=== PATIENT | male | born 1945 | race Caucasian/White ===

== ENCOUNTER → 2024-03-14 | Outpatient (CLI) | payer MEDICARE, SELFPAY ==
[2024-03-14 08:51] LABS: Glucose Estimated Average 189 mg/dL (80-131); Hemoglobin A1C 8.2 % Hgb (4.8-6.0)
[2024-03-14 09:13] LABS: Alanine Aminotransferase 16 U/L (10-49); Albumin, Serum 4.3 gm/dL (3.4-4.8); Alkaline Phosphatase 130 U/L (46-116); Anion Gap 9 (7-16); Aspartate Amino Transferase 13 U/L (0-34); BUN/Creatinine Ratio 12 Ratio (12-20); Bilirubin,Total 0.9 mg/dL (0.3-1.2); Blood Urea Nitrogen 12 mg/dL (9-23); Calcium 9.4 mg/dL (8.3-10.6); Calcium (Corrected) 9.4 mg/dL (8.5-10.1); Carbon Dioxide 28.6 mMol/L (20.0-31.0); Chloride 102 mMol/L (98-107); Cholesterol 104 mg/dL (132-200); Globulin 2.1 gm/dL (2.3-3.5); Glucose 232 mg/dL (74-106); HDL Cholesterol 35 mg/dL (40-60); LDL Cholesterol,Calculated 42 mg/dL (0-130); Osmolality,Calculated 286 (275-295); Potassium 4.9 mMol/L (3.4-5.1); Sodium 140 mMol/L (136-145); Total Protein 6.4 gm/dL (5.7-8.2); Triglycerides 133 mg/dL (30-150); eGFR > 60 See Note
== END | disposition home or self-care (01) ==
LOC: COPL 07:33
PROVIDERS: PCP Family Medicine; Referring Provider Family Medicine; Visit Provider Family Medicine
DX: E11.59 Type 2 diabetes mellitus with other circulatory complications (principal); C61 Malignant neoplasm of prostate
CPT/HCPCS: 36415; 80053; 80061; 82043; 82570; 83036

== ENCOUNTER → 2024-03-15 | Outpatient (CLI) | payer MEDICARE, SELFPAY ==
[2024-03-15 10:58] LABS: Creatinine MALB Rnd Ur 116 mg/dL (30-125); Microalbumin Creat Ratio 20 mg/gCrea (<30); Microalbumin, Random Urine 23 mg/L (0-300)
== END | disposition home or self-care (01) ==
LOC: SLDO 09:59
PROVIDERS: Referring Provider Family Medicine; Visit Provider Family Medicine
DX: E11.59 Type 2 diabetes mellitus with other circulatory complications (principal)
CPT/HCPCS: 82043; 82570

== ENCOUNTER 2024-04-21 02:40 | Inpatient (IN) | payer MEDICARE, SELFPAY ==
[2024-04-21] VITALS (17 sets, daily range): BP systolic 107–158; BP diastolic 62–88; PULSE 77–143; RESP 15–25; TEMP 36.7–38.6; O2SAT 88–100; BMI 32.1; BMI 33.0
--- NOTE | 2024-04-21 03:26 | XR_ITS ---
Examination: AP chest single view Technique one AP portable upright chest single view Exam date and time: April 21, 2024 0344 hours INDICATIONS: Shortness of breath today. FINDINGS: Mild enlargement cardiac contour Mild elevation right hemidiaphragm No pneumonia or pulmonary edema Moderate osteopenia IMPRESSION: No pneumonia or pulmonary edema
--- NOTE | 2024-04-21 03:40 | EKG_ITS ---
[facility] Test Date: 2024-04-21 Pat Name: BRIANA ECE Department: Room: - Gender: Male Fisher Scallop: : 1945 Requested By: ED Temporary Provider Order Number: [id number] Reading MD: ED Temporary Provider Measurements Intervals [place] Rate: 129 P: FL: QRS: 136 QRSD: 133 T: -13 QT: 323 QTc: 475 Interpretive Statements ATRIAL FIBRILLATION WITH RAPID VENTRICULAR RESPONSE INDETERMINATE AXIS RIGHT BUNDLE BRANCH BLOCK [120+ ms QRS DURATION, UPRIGHT V1, 40+ ms S IN I/aVL/V4/V5/V6] POSSIBLE ANTERIOR MYOCARDIAL INFARCTION , OF INDETERMINATE AGE [30 ms Q WAVE IN V3/V4, OR R < 0.2 mV IN V4] Compared to ECG 10/02/2020 13:18:09 Indeterminate axis now present Myocardial infarct finding now present Sinus rhythm no longer present /store/S0/[id number]/ecg/[id number].pdf
[2024-04-21] MEDS: ACETAMINOPHEN 325 MG TABLET 650 MG PO (06:12)
--- NOTE | 2024-04-21 06:30 | EDNOTE_ITS ---
ED SOB =RME/HPI General Chief Complaint: Shortness of Breath/Dyspnea Stated Complaint: SOB Time Seen by Provider: 04/21/24 06:19 Arrival date/time: 04/21/24 02:40 RME / HPI RME / HPI Narrative: DR. ZAMORA MAIN ED EVALUATION: 78-year-old male patient recently admitted and discharged from [facility] with complaints of chest pain and chronic CHF presents to the Emergency Department BIBA with complaints today of a dry cough, shortness of breath, and fever. Symptoms are moderate. Related Data Home Medications ?Medication ?Instructions ?Recorded ?Confirmed metoprolol succinate 50 mg 100 mg PO HS ##0 08/23/15 01/18/23 tablet,extended release 24 hr (Toprol XL) pregabalin 300 mg capsule (Lyrica) 600 mg PO QPM 07/05/17 01/18/23 pioglitazone 30 mg tablet 30 mg PO HS 10/02/20 01/18/23 apixaban 2.5 mg tablet (Eliquis) 2.5 mg PO BID 01/18/23 01/18/23 hydrochlorothiazide 50 mg tablet 50 mg PO QDAY 01/18/23 01/18/23 lisinopril 40 mg tablet 40 mg PO HS 01/18/23 01/18/23 Allergies Allergy/AdvReac Type Severity Reaction Status Date / Time iodine Allergy Severe Difficulty Verified 01/18/23 13:38 Breathing Sulfa (Sulfonamide Allergy Unknown Hives Verified 01/18/23 13:38 Antibiotics) Review of Systems Review of Systems Systems Reviewed: All systems reviewed, normal except as documented Narrative Review of Systems: GEN: + fever, no chills, no weight loss EYES: No discharge, no visual changes, no pain HEENT: No ear pain, no congestion, no sore throat PULM: + shortness of breath, + dry cough, no congestion CV: No chest pain, no dyspnea on exertion, no palpitations GI: No nausea, no vomiting, no diarrhea, no pain, no constipation : No frequency, no urgency and no dysuria MUSC/SKEL: No joint pain, no back pain SKIN: No rash PSYCH: No hallucinations, no depression HEME/LYMPH: No easy bleeding or bruising tendencies NEURO: No weakness, no headache Past Medical History Past Medical History NEUROLOGIC: Positive Neurological Disorders, Transient Ischemic Attacks (TIA) and Migraine; Negative Seizures CARDIAC: Positive Cardiac Disorders, Hypercholesterolemia and Hypertension; Negative Congestive Heart Failure RESPIRATORY: Negative Chronic Obstructive Pulmonary Disease (COPD) GASTROINTESTINAL: Negative Gastrointestinal Disorders GENITOURINARY: Positive Genitourinary Disorders, Kidney Stones and Prostate Cancer; Negative Renal Disease MUSCULOSKELETAL: Positive Musculoskeletal Disorders ENT: Positive Cataracts ENDOCRINE: Positive Endocrine Disorders and Diabetes Mellitus Type 2; Negative Diabetes Mellitus Type 1 HEMATOLOGIC: Negative Blood Disorders PSYCHO/SOCIAL: Positive Depression OTHER HISTORY: Positive Hospitalization, Radiation Therapy, Chicken Pox, Measles, Cancer and Prostate Cancer; Negative Shingles, Falls, Blood Transfusions, Blood Transfusion Reaction or Anesthesia Reactions Family History FAMILY HISTORY: Positive Family Psychiatric Problems, Family Cardiac Disorders, Family Cancer and Family Surgery; Negative Family Anesthesia Reaction Social History SMOKING STATUS: Former smoker ED Exam Narrative Physical exam: GENERAL APPEARANCE: alert and oriented x 4, well-developed, well-nourished, no acute distress, febrile at arrival VITALS: All vitals were reviewed and the pulse ox is 96% on 3 L/min via a nasal cannula. HEENT: Normocephalic, atraumatic; pupils equal, round, reactive to light; EOMI; mucous membranes pink, moist; oropharynx clear NECK: Supple LUNGS: CTABL; no wheezes, no rales, no rhonchi HEART: Regular rate, regular rhythm; normal S1, S2; no murmurs ABDOMEN: non distended; normal BS; soft, no tenderness, no guarding, no rebound; no masses, no organomegaly, no hernia BACK: no CVA tenderness EXTREMITIES: atraumatic; no edema NEUROLOGIC: awake; alert and oriented x4; cranial nerves II-XII grossly intact; no focal sensory or motor deficits PSYCHIATRIC: appropriate mood and affect SKIN: warm, dry, normal color; no rashes Course Quality Measures none Orders Category Date Time Status Bedside COVID-19 Antigen Test NOW Care 04/21/24 03:45 Active Bedside Influenza A&B Antigen Test NOW Care 04/21/24 07:[address] Screening NOW Care 04/21/24 10:26 Active 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 NOW Care 04/21/24 06:16 Active EKG (ED ONLY) *Do not use* NOW Care 04/21/24 03:[address] angio chest Stat Exams 04/21/24 10:26 Completed EKG (ED Only) Stat Exams 04/21/24 03:40 Draft XR chest 1V portable Stat Exams 04/21/24 03:26 Completed B-Type Natriuretic Peptide Stat Lab 04/21/24 06:35 Completed Blood Culture (Lab) Stat Lab 04/21/24 06:35 Received CBC Stat Lab 04/21/24 06:35 Completed Comprehensive Metabolic Panel Stat Lab 04/21/24 06:35 Completed Lactate (Lactic Acid) Stat Lab 04/21/24 06:35 Completed Lipase Stat Lab 04/21/24 06:35 Completed Magnesium Stat Lab 04/21/24 06:35 Completed Partial Thromboplastin Time Stat Lab 04/21/24 06:35 Completed Procalcitonin Stat Lab 04/21/24 06:35 Completed Prothrombin Time with INR Stat Lab 04/21/24 06:35 Completed Troponin I Stat Lab 04/21/24 06:35 Completed Urinalysis Stat Lab 04/21/24 06:45 Completed Urine Culture Stat Lab 04/21/24 06:49 Received Acetaminophen Tab [Tylenol Tab] Med 04/21/24 06:07 Discontinued 650 mg PO X1 ONE Azithromycin Inj [Zithromax Inj] 500 mg Med 04/21/24 07:30 Discontinued Sodium Chloride 0.9% 250 ml [Ns] 250 ml IV X1 DiphenhydrAMINE INJ [Benadryl Inj] Med 04/21/24 10:26 Discontinued 25 mg IVP X1 ONE Famotidine Inj [Pepcid Inj] Med 04/21/24 10:26 Discontinued 20 mg IVP X1 ONE MethylPREDNISolone.* [SoluMEDROL Inj] Med 04/21/24 10:26 Discontinued 125 mg IVP X1 ONE cefTRIAXone [Rocephin] 1,000 mg Med 04/21/24 07:30 Discontinued Sodium Chloride 0.9% (P) [Ns 0.9% (P)] 50 ml IV X1 Vital Signs Vital signs: Vital Signs Temperature 101.3 F H 04/21/24 02:47 Pulse Rate 116 H 04/21/24 02:47 Respiratory Rate 18 04/21/24 02:47 Blood Pressure 149/74 H 04/21/24 02:47 Pulse Oximetry (%) 95 04/21/24 02:47 Oxygen Delivery Method Nasal Cannula 04/21/24 02:47 Oxygen Flow Rate 6 04/21/24 02:47 Shortness of Breath / Dyspnea MDM Narrative MDM Narrative:: IKenna am scribing for and in the presence of Dr. Zamora. Patient data External records reviewed:: [facility] previous records (Reviewed last ED visit dated 01/18/23, discharged with the following: Acute upper respiratory infection.) and EMS form Clinical information provided by:: patient and EMS Social determinants that could affect healthcare access:: none Patient has the following chronic illnesses:: Prostate CA s/p radiation and hypertension. Recently admitted and discharged from [facility] with complaints of chest pain and chronic CHF. How is presenting disease/condition affected by chronic disease/condition?: exacerbated by Evaluation data The following diagnostics were reviewed and interpreted by me:: lab results, radiology exam(s) and EKG tracing(s) (atrial fibrillation with RVR, rate 129, right bundle branch block,) Lab and/or radiology exams considered but not ordered:: none Interpretation Summary: Procedure(s): XR chest 1V portable Accession Number(s): [id number] cc: Hardeep Sanchez MD; Chandrakant Hope MD; Mari Zamora MD~ Examination: AP chest single view Technique one AP portable upright chest single view Exam date and time: April 21, 2024 0344 hours INDICATIONS: Shortness of breath today. FINDINGS: Mild enlargement cardiac contour Mild elevation right hemidiaphragm No pneumonia or pulmonary edema Moderate osteopenia IMPRESSION: No pneumonia or pulmonary edema Dictated By: Chandrakant Hope MD Procedure(s): CT angio chest Accession Number(s): [id number] cc: Hardeep Sanchez MD; Chandrakant Hope MD; Mari Zamora MD~ Examination: CTA chest with intravenous contrast 2-D reconstructions 3-D reconstructions, vascular Date and time of exam: April 21, 2024 1247 hours INDICATIONS: Shortness of breath coughing beginning 6 days ago CTDI: vol (mGy) 20.6 DLP: (mGycm) 466 Technique: Multiple axial sections of the thorax have been obtained. 3 mm slice thickness, from below the hemidiaphragms to above the apices of the lungs. Mediastinal and lung density settings have been obtained. 2-D sagittal and coronal reconstructions. 3-D angiographic renderings, 3-D volume renderings, 3D post processing, vascular maximum intensity projections obtained. Contrast administered is 100 cc Isovue-370. Low dose protocols were performed. One or more of the following dose reduction techniques were used; automated exposure control, adjustment of the mA and/or KV according to patient size, use of iterative reconstruction technique. Findings: No thoracic aortic aneurysmal dilatation Main pulmonary artery segment 40 mm Pulmonary artery opacification in the distal segmental branches is not optimal No pulmonary artery emboli depicted Mild enlargement cardiac contour Prominent vascular congestion Mild opacity at the left lung base Minimal bilateral pleural disease No visualized liver lesion No gallstones No pancreatic or adrenal mass Moderate osteopenia IMPRESSION: Pulmonary artery hypertension Negative for pulmonary artery emboli Early pneumonia left base Dictated By: Chandrakant Hope MD Medications / Prescriptions Medications or Prescriptions considered but not ordered:: none Medication administrations:: Medication Administration History Acetaminophen (Acetaminophen 325 Mg Tablet) 650 mg PO Q6H PRN PRN Reason: pain and Fever >100.4 Stop: 05/21/24 14:56 Hydrocodone Bitart/Acetaminophen (Hydrocodone/Apap 5/325 Tablet) 1 tab PO Q4HR PRN PRN Reason: PAIN SCALE 4-10(Mod-Sev Stop: 04/26/24 14:56 Last Admin: 04/21/24 15:27 Dose: 1 tab Documented By: NOEMI Apixaban (Apixaban 2.5 Mg Tablet) 2.5 mg PO BID VIKI; Protocol Stop: 05/21/24 20:59 Dextrose (Dextrose 50%-Water Inj 50 Ml Syringe) 25 ml IV Q15MIN PRN PRN Reason: BG 50-70 responsive npo pt Stop: 05/21/24 14:56 Dextrose (Dextrose 50%-Water Inj 50 Ml Syringe) 50 ml IV Q15MIN PRN PRN Reason: BG <50 OR BG <70 & pt unresponsive Stop: 05/21/24 14:56 Doxycycline Hyclate (Doxycycline 100 Mg Tablet) 100 mg PO BID [facility] Stop: 04/28/24 20:59 Glucagon (Glucagon Inj 1 Mg Vial) 1 mg IM Q15MIN PRN PRN Reason: BG <70, and no IV access Ceftriaxone Sodium/Dextrose (Rocephin/D5w 1gm Iv Premix) 50 mls @ 100 mls/hr IV QDAY [facility] Stop: 04/28/24 08:59 Insulin Glargine (Insulin Glargine (Lantus) 5 Unit/0.05 Ml (Per 5 Units)) 10 unit SC HS [facility] Stop: 05/21/24 20:59 Insulin Human Lispro (Insulin Lispro (Admelog) 1 Unit/0.01 Ml Unit) 0 unit SC [facility]; Protocol Stop: 05/21/24 16:59 Metoprolol Succinate (Metoprolol Succinate Xl 25 Mg Tabcr) 50 mg PO QDAY [facility] Stop: 05/22/24 08:59 Ondansetron HCl (Ondansetron Inj 2 Mg/Ml Inj 2 Ml) 4 mg IV Q6H PRN; Protocol PRN Reason: NAUSEA OR VOMITING Stop: 05/21/24 14:56 Sennosides (Senna Tablet) 1 tab PO QDAY PRN; Protocol PRN Reason: constipation Stop: 05/21/24 14:56 Discontinued Medications Acetaminophen (Acetaminophen 325 Mg Tablet) 650 mg PO X1 ONE Stop: 04/21/24 06:08 Last Admin: 04/21/24 06:12 Dose: 650 mg Documented By: KD Diphenhydramine HCl (Diphenhydramine Inj 50 Mg/Ml Vial) 25 mg IVP X1 ONE Stop: 04/21/24 10:27 Last Admin: 04/21/24 12:10 Dose: 25 mg Documented By: DO Famotidine (Famotidine Inj 10 Mg/Ml Vial 2 Ml) 20 mg IVP X1 ONE Stop: 04/21/24 10:27 Last Admin: 04/21/24 12:10 Dose: 20 mg Documented By: DO Heparin Sodium (Porcine) (Heparin Sod Inj 5000 Unit/Ml Vial) 5,000 unit SC Q8HR [facility] Stop: 05/05/24 21:59 Azithromycin 500 mg/ Sodium (Chloride) 250 mls @ 250 mls/hr IV X1 ONE Stop: 04/21/24 08:29 Last Infusion: 04/21/24 10:05 Dose: Infused Documented By: Admin: 04/21/24 09:03 Dose: 250 mls/hr Documented By: DO Ceftriaxone Sodium 1,000 mg/ (Sodium Chloride) 50 mls @ 100 mls/hr IV X1 ONE Stop: 04/21/24 07:59 Last Infusion: 04/21/24 09:00 Dose: Infused Documented By: Admin: 04/21/24 07:51 Dose: 100 mls/hr Documented By: DO Methylprednisolone Sodium Succinate (Methylprednisolone Sod Succ 62.5 Mg/Ml 2ml Vial) 125 mg IVP X1 ONE Stop: 04/21/24 10:27 Last Admin: 04/21/24 12:11 Dose: 125 mg Documented By: DO Sodium Chloride (Sodium Chloride Rt 10% 15 Ml Nebu) 5 ml INH X1 ONE Stop: 04/21/24 14:58 see above Consultations Consultation(s) initiated? (list below): Yes Consultation #1 (Physician, Specialty, Details): Discussed test HPI, PMHx, lab, radiology results and/or management with hospitalist. Will admit for further evaluation and management. Accepts patient for admission. Time: 14:50 Diagnosis Shortness of Breath Differential Diagnosis: acute exacerbation of chronic obstructive airways disease, congestive heart failure, community acquired pneumonia, pulmonary embolism and other (influenza, COVID, dehydration) Most likely diagnosis given after review of the tests above:: As noted below. Admission Indicated Admission indicated?: indicated Admission Request Was there a request for admission?: Yes Admission Attestation Admission request attestation: Discussed case with [] from Hospitalist service regarding admission. Discussed patients ED course, exam findings, labs, and radiology results. The Hospitalist [agrees,declines] to accept the patient for admission. Disposition Plan Disposition Plan: Admit Discharge Plan Plan Patient Disposition: Admit Acute Care w/in Hospital
[2024-04-21 07:01] LABS: Lactate (Lactic Acid) 1.7 mMol/L (0.4-2.0)
[2024-04-21 07:02] LABS: Collection Type, Urine Clean Catch; Squamous Epithelial Cell,Urine 0 /hpf (0-5)
[2024-04-21 07:04] LABS: Basophils # (Auto) 0.1 Thou/mm3 (0.0-0.2); Basophils % (Auto) 0 % (0-2.5); Eosinophils % (Auto) 0 % (0-10); Hematocrit 47.1 % (41.0-53.0); Immature Granulocytes % (Auto) 0 % (0-0); Immature Granulocytes Auto 0.05 Thou/mm3 (0.00-0.00); Lymphocytes # (Auto) 1.4 Thou/mm3 (1.0-4.8); Lymphocytes % (Auto) 12 % (10-50); Mean Corpuscular Hemoglobin 30.6 pg (25.0-35.0); Mean Corpuscular Volume 90 fL (80-100); Monocytes # (Auto) 1.4 Thou/mm3 (0.0-0.8); Monocytes % (Auto) 11 % (0-12); Neutrophils # (Auto) 9.3 Thou/mm3 (1.8-7.7); Neutrophils % (Auto) 76 % (37-80); Nucleated Red Blood Cell % 0 /100 WBC (0); Platelet Count 192 Thou/mm3 (140-440); RDW Standard Deviation 47.5 fL (35.1-43.9); Red Blood Count 5.23 Miln/mm3 (4.50-5.90); White Blood Count 12.2 Thou/mm3 (3.8-10.6)
[2024-04-21 07:08] LABS: Bilirubin,Urine Negative (Negative); Blood,Urine Trace (Negative); Clarity,Urine Clear (Clear/Hazy); Color,Urine Yellow (Lt Yel-Yel); Glucose, Urine 1+ (Negative); Hyaline Casts,Urine < 1 /hpf (0-1); Ketones,Urine Trace (Negative); Leukocyte Esterase,Urine Negative (Negative); Nitrite,Urine Negative (Negative); Protein,Urine 1+ (Neg - Trace); RBC,Urine 8 /hpf (0-3); Specific Gravity,Urine 1.027 (1.001-1.035); WBC,Urine 2 /hpf (0-5)
[2024-04-21 07:25] LABS: B-Type Natriuretic Peptide 97 pg/mL (0-100)
[2024-04-21 07:29] LABS: Alanine Aminotransferase 39 U/L (10-49); Albumin, Serum 4.5 gm/dL (3.4-4.8); Albumin/Globulin Ratio 1.8 (1.2-2.2); Alkaline Phosphatase 162 U/L (46-116); Anion Gap 6 (7-16); Aspartate Amino Transferase 30 U/L (0-34); BUN/Creatinine Ratio 17 Ratio (12-20); Bilirubin,Total 1.1 mg/dL (0.3-1.2); Blood Urea Nitrogen 17 mg/dL (9-23); Calcium 9.3 mg/dL (8.3-10.6); Calcium (Corrected) 9.3 mg/dL (8.5-10.1); Carbon Dioxide 26.9 mMol/L (20.0-31.0); Chloride 105 mMol/L (98-107); Estimated Creatinine Clearance 74.8 mL/min (>60); Globulin 2.5 gm/dL (2.3-3.5); Glucose 242 mg/dL (74-106); Lipase 32 U/L (12-53); Osmolality,Calculated 285 (275-295); Potassium 4.5 mMol/L (3.4-5.1); Procalcitonin 0.33 ng/ml (0.0-0.49); Sodium 138 mMol/L (136-145); Troponin I < 0.020 ng/mL (0.0-0.045); eGFR > 60 See Note
--- NOTE | 2024-04-21 07:30 | PC.NURSE ---
PT RESTING IN BED AT THIS TIME. NO APPARENT DISTRESS. RESPIRATIONS SLIGHTLY LABORED. PT IS ON 02 2L AT THIS TIME. AT BEDSIDE.
[2024-04-21] MEDS: cefTRIAXone 1,000 MG in SODIUM CHLORIDE 0.9% (P) 50 ML 100 MG IV (07:51)
[2024-04-21] MEDS: AZITHROMYCIN INJ 500 MG in SODIUM CHLORIDE 0.9% 250 ML 250 ML 250 MG IV (09:03)
[2024-04-21 09:23] LABS: INR 1.1 (0.9-1.3); Partial Thromboplastin Time 28.3 Seconds (22.0-36.0); Prothrombin Time 11.9 Seconds (9.0-12.2)
--- NOTE | 2024-04-21 10:26 | XR_ITS ---
Examination: CTA chest with intravenous contrast 2-D reconstructions 3-D reconstructions, vascular Date and time of exam: April 21, 2024 1247 hours INDICATIONS: Shortness of breath coughing beginning 6 days ago CTDI: vol (mGy) 20.6 DLP: (mGycm) 466 Technique: Multiple axial sections of the thorax have been obtained. 3 mm slice thickness, from below the hemidiaphragms to above the apices of the lungs. Mediastinal and lung density settings have been obtained. 2-D sagittal and coronal reconstructions. 3-D angiographic renderings, 3-D volume renderings, 3D post processing, vascular maximum intensity projections obtained. Contrast administered is 100 cc Isovue-370. Low dose protocols were performed. One or more of the following dose reduction techniques were used; automated exposure control, adjustment of the mA and/or KV according to patient size, use of iterative reconstruction technique. Findings: No thoracic aortic aneurysmal dilatation Main pulmonary artery segment 40 mm Pulmonary artery opacification in the distal segmental branches is not optimal No pulmonary artery emboli depicted Mild enlargement cardiac contour Prominent vascular congestion Mild opacity at the left lung base Minimal bilateral pleural disease No visualized liver lesion No gallstones No pancreatic or adrenal mass Moderate osteopenia IMPRESSION: Pulmonary artery hypertension Negative for pulmonary artery emboli Early pneumonia left base
[2024-04-21] MEDS: FAMOTIDINE INJ 10 MG/ML VIAL 2 ML 20 MG IVP (12:10)
[2024-04-21] MEDS: DiphenhydrAMINE INJ 50 MG/ML VIAL 25 MG IVP (12:10)
[2024-04-21] MEDS: MethylPREDNISolone SOD SUCC 62.5 MG/ML 2ML VIAL 125 MG IVP (12:11)
--- NOTE | 2024-04-21 12:38 | PC.NURSE ---
pt to ct
--- NOTE | 2024-04-21 14:57 | XR_ITS ---
Examination: CT abdomen and pelvis without contrast. Coronal 3-D reconstructions. Sagittal 2-D reconstructions. Date and time of exam:April 21, 2024 1658 hrs. Indications: Onset right lower abdominal pain beginning 6 days ago CTDI: vol (mGy): 13.9 DLP: (mGycm): 835 Technique: Axial images of the abdomen have been obtained, 3 mm slice thickness Intravenous contrast material has not been administered. Low dose protocols were performed. One or more of the following dose reduction techniques were used; automated exposure control, adjustment of the mA and/or KV according to patient size, use of iterative reconstruction technique. Findings: Opacity left base consistent with pneumonia No focal liver or splenic lesions No gallstones No pancreatic or adrenal mass Mild bilateral renal parenchymal scar formation, no hydronephrosis Abdominal aortic calcification no aneurysmal dilatation Normal appendix No bowel obstruction 27 mm umbilical hernia containing small bowel but no incarcerated bowel Colonic diverticulosis, no definite diverticulitis Normal seminal vesicles Prostate tissue not depicted Contrast in the urinary bladder Fat-containing inguinal hernias Moderate osteopenia, moderate disc narrowing posteriorly L5-S1 Impression: Mild bilateral renal parenchymal scar formation, no hydronephrosis Normal appendix 27 mm umbilical hernia containing small bowel but no incarcerated bowel Colonic diverticulosis, no diverticulitis
--- NOTE | 2024-04-21 15:11 | ESHP_ITS ---
<Statement entered by Milvia Blancas MD - 04/21/24 20:53> I discussed with and supervised my co-resident involved in the care of this patient. I agree with the assessment and plan as documented above. Milvia Blancas,PGY-3 Disclaimer: Despite multiple revisions, due to the dictation software being used, the document below may not be free of grammatical errors including phonetic/typographic errors. However, this does not deter from our commitment to providing health care in the patient's best interest in mind. Documentation for date of: 04/21/24 HPI History of Present Illness History of present illness: 78-year-old male with past medical history of DM2, hypertension, CAD s/p stents, A-fib (on Eliquis), and prostate cancer s/p radiation was admitted to the hospital on 04/21/2024 after coming to the ED with complaints of shortness of breath, cough, and fever. Patient states that yesterday morning he started feeling weak and he developed shortness of breath along with cough. At this time patient measured his temperature and he had a fever of 101. He denies any sick contacts, but lives at [facility] and he could have had some sick contact and not be aware of it. Patient also mentioned that he had some chest pressure which was worse with breathing, but denied any nausea, vomiting, changes in stools, dysuria, or syncopal episodes. Patient stated that he was previously seen at [facility] due to chest pain and that during this time he had a stress test done and everything was within normal limits as per patient, but that he did not have any heart At this time. 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 During my assessment patient had some right lower quadrant pain with deep palpation. ED course: Initially came in tachycardic, hypertensive, and febrile. Initial labs were relevant for leukocytosis (12.2). Initial imaging included chest x-ray which did not show any pneumonia or pulmonary edema, EKG which showed A-fib with RVR, and chest CTA which showed some pulmonary artery hypertension and some early pneumonia of left base. Received 1 dose of azithromycin and Rocephin as well as Tylenol. PMH: As above FMH: Mom had heart issues, no other relevant medical history Social Hx: Admits social drinking, admits smoking cigars since 18 years old, denies any drugs Surgical Hx: Back surgery and stent placement. Review of Systems Review of Systems Narrative Review of Systems: Constitutional: Denies sweats, Denies weight loss/gain, Admits fever, Denies chills. HEENT: Denies hearing loss, Denies ear pain, Denies postnasal drip, Denies double vision, Denies blurry vision. Respiratory: Admtis shortness of breath, Admits cough, Denies wheezing. Cardiovascular: Admits chest pain, Denies palpitations, Denies sudden loss of consciousness. GI: Denies blood in stool, Denies constipation, Denies abdominal pain, Denies difficulty swallowing, Denies nausea or vomit. : Denies urinary incontinence, Denies pain while urinating, Denies increased urinary frequency. MSK: Denies joint pain, Denies joint swelling, Denies numbness. Skin: Denies rash, Denies itching, Denies easy bruising. Neuro: Denies headaches, Denies dizziness, Denies seizures. Past Medical History Past Medical History NEUROLOGIC: Positive Neurological Disorders, Transient Ischemic Attacks (TIA) and Migraine; Negative Seizures CARDIAC: Positive Cardiac Disorders, Hypercholesterolemia and Hypertension; Negative Congestive Heart Failure RESPIRATORY: Negative Chronic Obstructive Pulmonary Disease (COPD) GASTROINTESTINAL: Negative Gastrointestinal Disorders GENITOURINARY: Positive Genitourinary Disorders, Kidney Stones and Prostate Cancer; Negative Renal Disease MUSCULOSKELETAL: Positive Musculoskeletal Disorders ENT: Positive Cataracts ENDOCRINE: Positive Endocrine Disorders and Diabetes Mellitus Type 2; Negative Diabetes Mellitus Type 1 HEMATOLOGIC: Negative Blood Disorders PSYCHO/SOCIAL: Positive Depression OTHER HISTORY: Positive Hospitalization, Radiation Therapy, Chicken Pox, Measles, Cancer and Prostate Cancer; Negative Shingles, Falls, Blood Transfusions, Blood Transfusion Reaction or Anesthesia Reactions Family History FAMILY HISTORY: Positive Family Psychiatric Problems, Family Cardiac Disorders, Family Cancer and Family Surgery; Negative Family Anesthesia Reaction Social History SMOKING STATUS: Former smoker Exam Vital Signs Temp Pulse Resp BP Pulse Ox O2 Del Method O2 Flow Rate 98.0 F 99 18 145/88 H 96 Room Air 3 04/21/24 14:34 04/21/24 14:34 04/21/24 14:34 04/21/24 14:34 04/21/24 14:34 04/21/24 14:34 04/21/24 12:11 Narrative Exam General: A/O x3, no acute distress, well-nourished, well-developed Eyes: PERRL, EOMI. Anicteric, vision grossly intact. Ears: No ear pain, no ear discharge, Hearing grossly intact. Nose: No nasal discharge. Mouth/Throat: Dry mucous membranes, no redness, no lesions. Neck: Neck supple, non-tender, no cervical lymphadenopathy. Lungs: Clear DAYA to auscultation and percussion, No accessory muscle use. Cardio: Normal S1/S2, regular rhythm, no murmurs, no JVD. Abdomen: Soft, RLQ tenderness, no palpable masses, peristalsis present, no guarding or rebound. Extremities: Symmetrical, no significant deformities, 2+ peripheral edema , non-tender, peripheral pulses presents. Skin: No rashes, no lesions, warm to touch. Neuro: No focal neurological deficits. motor and sensory intact Psych: Cooperative, appropriate mood and effect. Results: Labs 04/22/24 04:38 04/22/24 04:38 Labs: Short CBC 04/21/24 Range/Units 06:35 WBC 12.2 H (3.8-10.6) Thou/mm3 Hgb 16.0 (13.5-16.0) g/dL Hct 47.1 (41.0-53.0) % Plt Count 192 (140-440) Thou/mm3 BMP 04/21/24 06:35 Sodium 138 Potassium 4.5 Chloride 105 Carbon Dioxide 26.9 BUN 17 Creatinine 1.0 Glucose 242 H Calcium 9.3 Cardiac Enzymes 04/21/24 Range/Units 06:35 Troponin I < 0.020 (0.0-0.045) ng/mL Liver Function 04/21/24 Range/Units 06:35 Total Bilirubin 1.1 (0.3-1.2) mg/dL AST 30 (0-34) U/L ALT 39 (10-49) U/L Alkaline Phosphatase 162 H (46-116) U/L Albumin 4.5 (3.4-4.8) gm/dL Urine 04/21/24 Range/Units 06:45 Urine Color Yellow (Lt Yel-Yel) Urine Clarity Clear (Clear/Hazy) Urine pH 6.0 (5.0-7.0) Ur Specific [place] 1.027 (1.001-1.035) Urine Protein 1+ A (Neg - Trace) Urine Glucose (UA) 1+ A (Negative) Quality Measures Quality Measures VTE prophylaxis Advance care planning discussed with:: patient Medications Home Medications and Allergies Home Medications ?Medication ?Instructions ?Recorded ?Confirmed ?Type metoprolol succinate 50 mg 100 mg PO HS ##0 08/23/15 04/22/24 History tablet,extended release 24 hr (Toprol XL) pregabalin 300 mg capsule (Lyrica) 600 mg PO QPM 07/05/17 04/22/24 History apixaban 2.5 mg tablet (Eliquis) 2.5 mg PO BID 01/18/23 04/22/24 History atorvastatin 80 mg tablet 80 mg PO QPM 04/22/24 04/22/24 History clopidogrel 75 mg tablet 75 mg PO QDAY 04/22/24 04/22/24 History cyanocobalamin (B12)-cobamamide 04/22/24 History 5,000 mcg-100 mcg sublingual lozenge (B12) insulin NPH-regular 70-30 U-100 5 unit subcut BID 04/22/24 04/22/24 History insulin 100 unit/mL subcutaneous pen (Novolin 70-30 FlexPen U-100 Insulin) lisinopril 10 mg tablet 10 mg PO QPM 04/22/24 04/22/24 History memantine 10 mg tablet 10 mg PO BID 04/22/24 04/22/24 History metformin 500 mg tablet 500 mg PO QDAY 04/22/24 04/22/24 History omega-3 fatty acids-vitamin E 1,000 cap PO 1XD 04/22/24 04/22/24 History 1,000 mg capsule Allergies Allergy/AdvReac Type Severity Reaction Status Date / Time iodine Allergy Severe Difficulty Verified 01/18/23 13:38 Breathing Sulfa (Sulfonamide Allergy Unknown Hives Verified 01/18/23 13:38 Antibiotics) Visit Medications Acetaminophen (Acetaminophen 325 Mg Tablet) 650 mg PO Q6H PRN PRN Reason: pain and Fever >100.4 Stop: 05/21/24 14:56 Hydrocodone Bitart/Acetaminophen (Hydrocodone/Apap 5/325 Tablet) 1 tab PO Q4HR PRN PRN Reason: PAIN SCALE 4-10(Mod-Sev Stop: 04/26/24 14:56 Dextrose (Dextrose 50%-Water Inj 50 Ml Syringe) 25 ml IV Q15MIN PRN PRN Reason: BG 50-70 responsive npo pt Stop: 05/21/24 14:56 Dextrose (Dextrose 50%-Water Inj 50 Ml Syringe) 50 ml IV Q15MIN PRN PRN Reason: BG <50 OR BG <70 & pt unresponsive Stop: 05/21/24 14:56 Doxycycline Hyclate (Doxycycline 100 Mg Tablet) 100 mg PO BID [facility], [facility] Stop: 04/28/24 20:59 Glucagon (Glucagon Inj 1 Mg Vial) 1 mg IM Q15MIN PRN PRN Reason: BG <70, and no IV access Heparin Sodium (Porcine) (Heparin Sod Inj 5000 Unit/Ml Vial) 5,000 unit SC Q8HR [facility], [facility]1983 Stop: 05/05/24 21:59 Ceftriaxone Sodium/Dextrose (Rocephin/D5w 1gm Iv Premix) 50 mls @ 100 mls/hr IV QDAY FOR[facility], [facility]1983 Stop: 04/28/24 08:59 Insulin Human Lispro (Insulin Lispro (Admelog) 1 Unit/0.01 Ml Unit) 0 unit SC ACHS [facility], [facility]; Protocol Stop: 05/21/24 16:59 Ondansetron HCl (Ondansetron Inj 2 Mg/Ml Inj 2 Ml) 4 mg IV Q6H PRN; Protocol PRN Reason: NAUSEA OR VOMITING Stop: 05/21/24 14:56 Sennosides (Senna Tablet) 1 tab PO QDAY PRN; Protocol PRN Reason: constipation Stop: 05/21/24 14:56 Discontinued Medications Acetaminophen (Acetaminophen 325 Mg Tablet) 650 mg PO X1 ONE Stop: 04/21/24 06:08 Last Admin: 04/21/24 06:12 Dose: 650 mg Diphenhydramine HCl (Diphenhydramine Inj 50 Mg/Ml Vial) 25 mg IVP X1 ONE Stop: 04/21/24 10:27 Last Admin: 04/21/24 12:10 Dose: 25 mg Famotidine (Famotidine Inj 10 Mg/Ml Vial 2 Ml) 20 mg IVP X1 ONE Stop: 04/21/24 10:27 Last Admin: 04/21/24 12:10 Dose: 20 mg Azithromycin 500 mg/ Sodium (Chloride) 250 mls @ 250 mls/hr IV X1 ONE Stop: 04/21/24 08:29 Last Infusion: 04/21/24 10:05 Dose: Infused Ceftriaxone Sodium 1,000 mg/ (Sodium Chloride) 50 mls @ 100 mls/hr IV X1 ONE Stop: 04/21/24 07:59 Last Infusion: 04/21/24 09:00 Dose: Infused Methylprednisolone Sodium Succinate (Methylprednisolone Sod Succ 62.5 Mg/Ml 2ml Vial) 125 mg IVP X1 ONE Stop: 04/21/24 10:27 Last Admin: 04/21/24 12:11 Dose: 125 mg Sodium Chloride (Sodium Chloride Rt 10% 15 Ml Nebu) 5 ml INH X1 ONE Stop: 04/21/24 14:58 Assessment & Plan Plan 78-year-old male with past medical history of DM2, hypertension, CAD s/p stents, A-fib (on Eliquis), and prostate cancer s/p radiation was admitted to the hospital on 04/21/2024 due to acute hypoxic respiratory failure likely secondary to pneumonia and concern for sepsis in the setting of pneumonia. #Acute hypoxic respiratory failure secondary to #Community-acquired pneumonia versus hospital-acquired pneumonia ? Patient came in with complaints of cough, shortness of breath, and fever. ?DDx community-acquired pneumonia versus hospital-acquired pneumonia given recent hospital stay. ? Patient met SIRS 3 out of 4 with tachycardia, fever, and leukocytosis ? CTA showed pneumonia of left base ?Chest x-ray did not show any pneumonia ? WBC 12.2 ? Lactic acid 1.7 and procalcitonin 0.33 Plan: ?Started patient on ceftriaxone and doxycycline [04/21/2024?] ?Ordered cocci ?Sputum and blood cultures pending ?Oxygen administration as needed ?Will continue to monitor #Right lower quadrant pain #Concern for appendicitis versus constipation versus peritonitis ?On assessment patient had right lower quadrant pain and had leukocytosis and fever -Valencia score of 5 points Plan: ?CT abdomen/pelvis ordered ? Will continue to monitor #Lower extremity edema #Pulmonary artery hypertension #CAD s/p stents ?Patient has lower extremity edema for the past 6 months to 1 year ? CTA chest showed pulmonary artery hypertension ? DDx right-sided heart failure in the setting of pulmonary artery hypertension Plan: ?Given recent hospitalization at [facility] we will request records and if no alcohol follow will order an echo #DM2 ?Glucose 242 Plan: ? 10 units glargine at bedtime ? ISS ? Accu-Cheks and hypoglycemia protocol ordered ?Will get records from [facility] to see if recent A1c was ordered, if not we will order #A-fib RVR ? Patient takes Eliquis and metoprolol at home ? EKG showed A-fib with RVR ? Heart rate was in the 160s, which could be due to underlying infection Plan: ? Restart patient's metoprolol 50 mg daily ? Restart patient's Eliquis 2.5 mg twice daily ? Will continue to monitor Disposition: Patient admitted to telemetry for PNA and possible appendecitis pending CT abd/pelv. Diet: Carb low GI prophylaxis: not indicated DVT prophylaxis: Eliquis Code: Full Case disclosed with Attending Dr. Willis and My senior Dr. Blancas PGY3. Brenton Chapman PGY1 Attending Provider Attestation/Addendum I have discussed and was present for the essential components of the history, physical examination, diagnosis, and treatment plan with the resident. I agree with the patient's care as documented by the resident and amended herein by me. Froilan Willis DO. Although this document has been carefully reviewed, there may still be some phonetic and other typographical errors. These errors are purely grammatical due to imperfections in the software program and should not be construed in any way to compromise the substance of the patient's medical care during this visit.
[2024-04-21] MEDS: HYDROcodone/APAP 5/325 TABLET 1 TAB PO (15:27)
[2024-04-21] MEDS: INSULIN LISPRO (AdmeLOG) 1 UNIT/0.01 ML UNIT SC ×2 (17:50→20:53)
--- NOTE | 2024-04-21 18:12 | PC.NURSE ---
PT REQUESTING COUGH MEDICATIONS AT THIS TIME. WILL CONTACT ADMITTING DOCTORS FOR ORDERS
--- NOTE | 2024-04-21 19:01 | PC.NURSE ---
SPOKE WITH DR GRIFFIN. INFORMED HIM THAT PT IS REQUESTING COUGH MEDICATIONS. ALSO INFORMED HIM THAT THE PT WANTED ME TO LET HIM KNOW THAT THE PAIN HE HAD TO HIS ABD HAS BEEN ON AND OFF FOR A FEW MONTHS BUT PAIN ONLY LAST A FEW SECONDS WHEN HE GETS IT. OKAY PER DR GRIFFIN.
[2024-04-21] MEDS: INSULIN GLARGINE (Lantus) 5 UNIT/0.05 ML (PER 5 UNITS) 10 UNIT SC (20:54)
[2024-04-21] MEDS: APIXABAN 2.5 MG TABLET PO (21:02)
[2024-04-21] MEDS: DOXYCYCLINE 100 MG TABLET PO (21:02)
--- NOTE | 2024-04-21 21:16 | PC.NURSE ---
Report called to Jenn WRIGHT. pt up to rm on monitor
[2024-04-21] MEDS: guaiFENesin SYRUP 200 MG/10 ML UDC 100 MG PO (22:25)
--- NOTE | 2024-04-21 22:46 | PC.NURSE ---
Med rec could not be completed bc patient doesnt remember his meds that he takes. He said that his will bring his meds when she comes here tomorrow.
[2024-04-22] VITALS (12 sets, daily range): BP systolic 125–144; BP diastolic 69–76; PULSE 78–109; RESP 15–94; TEMP 35.9–36.4; O2SAT 93–99; BMI 13.0
[2024-04-22] MEDS: ACETAMINOPHEN 325 MG TABLET 650 MG PO ×2 (06:03→12:56)
[2024-04-22 06:16] LABS: Basophils % (Auto) 0 % (0-2.5); Eosinophils % (Auto) 0 % (0-10); Hematocrit 44.2 % (41.0-53.0); Immature Granulocytes % (Auto) 1 % (0-0); Immature Granulocytes Auto 0.05 Thou/mm3 (0.00-0.00); Lymphocytes # (Auto) 0.9 Thou/mm3 (1.0-4.8); Lymphocytes % (Auto) 10 % (10-50); Mean Corpuscular HGB Conc 33.9 g/dl (31.0-37.0); Mean Corpuscular Hemoglobin 30.6 pg (25.0-35.0); Mean Corpuscular Volume 90 fL (80-100); Monocytes # (Auto) 0.7 Thou/mm3 (0.0-0.8); Monocytes % (Auto) 7 % (0-12); Neutrophils # (Auto) 8.3 Thou/mm3 (1.8-7.7); Neutrophils % (Auto) 83 % (37-80); Nucleated Red Blood Cell % 0 /100 WBC (0); Platelet Count 192 Thou/mm3 (140-440); RDW Standard Deviation 46.5 fL (35.1-43.9); White Blood Count 9.9 Thou/mm3 (3.8-10.6)
[2024-04-22 06:34] LABS: Prostate Specific Antigen 0.18 ng/mL (0-4.00)
[2024-04-22 06:46] LABS: Alanine Aminotransferase 29 U/L (10-49); Albumin, Serum 4.3 gm/dL (3.4-4.8); Albumin/Globulin Ratio 1.7 (1.2-2.2); Alkaline Phosphatase 144 U/L (46-116); Anion Gap 8 (7-16); Aspartate Amino Transferase 13 U/L (0-34); BUN/Creatinine Ratio 24 Ratio (12-20); Bilirubin,Total 0.8 mg/dL (0.3-1.2); Blood Urea Nitrogen 24 mg/dL (9-23); Calcium 9.3 mg/dL (8.3-10.6); Calcium (Corrected) 9.3 mg/dL (8.5-10.1); Carbon Dioxide 29.3 mMol/L (20.0-31.0); Chloride 103 mMol/L (98-107); Estimated Creatinine Clearance 75.9 mL/min (>60); Globulin 2.5 gm/dL (2.3-3.5); Glucose 250 mg/dL (74-106); Osmolality,Calculated 291 (275-295); Potassium 4.2 mMol/L (3.4-5.1); Sodium 140 mMol/L (136-145); Total Protein 6.8 gm/dL (5.7-8.2); eGFR > 60 See Note
[2024-04-22] MEDS: INSULIN LISPRO (AdmeLOG) 1 UNIT/0.01 ML UNIT SC ×4 (07:50→20:36)
[2024-04-22] MEDS: METOPROLOL SUCCINATE XL 25 MG TABCR 50 MG PO (09:09)
[2024-04-22] MEDS: APIXABAN 2.5 MG TABLET PO ×2 (09:09→20:30)
[2024-04-22] MEDS: DOXYCYCLINE 100 MG TABLET PO ×2 (09:09→20:30)
[2024-04-22] MEDS: cefTRIAXone/D5w 1gm IV premix 50 ML IV (09:10)
[2024-04-22] MEDS: guaiFENesin SYRUP 200 MG/10 ML UDC 100 MG PO ×2 (09:10→22:03)
[2024-04-22] MEDS: INSULIN LISPRO (AdmeLOG) 1 UNIT/0.01 ML UNIT 3 UNIT SC (11:46)
--- NOTE | 2024-04-22 13:28 | ESPR_ITS ---
Documentation for date of: 04/22/24 Subjective Subjective Interval history: Patient was seen at bedside this morning. No overnight events. Patient's blood culture in the first 24 hours came back negative. Abdomen/pelvis CT ordered yesterday did show some diverticulosis, umbilical hernia, left base pneumonia, and mild renal parenchymal scar formation. CT did not show any signs of appendicitis. Will continue with ceftriaxone and doxycycline for antibiotic coverage for his pneumonia. Also gave lactulose and senna for patient as he had had not had a bowel movement past 2 or 3 days. Ordered physical therapy for patient as she is having lower extremity weakness. 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 Exam Vital Signs Temp Pulse Resp BP Pulse Ox O2 Del Method O2 Flow Rate 97.4 F 85 15 130/69 98 Room Air 5 04/22/24 12:00 04/22/24 12:04/22/24 12:04/22/24 12:04/22/24 12:04/22/24 12:04/22/24 07:08 Narrative Exam General: A/O x3, no acute distress, well-nourished, well-developed Eyes: PERRL, EOMI. Anicteric, vision grossly intact. Ears: No ear pain, no ear discharge, Hearing grossly intact. Nose: No nasal discharge. Mouth/Throat: Dry mucous membranes, no redness, no lesions. Neck: Neck supple, non-tender, no cervical lymphadenopathy. Lungs: Clear DAYA to auscultation and percussion, No accessory muscle use. Cardio: Normal S1/S2, regular rhythm, no murmurs, no JVD. Abdomen: Soft, RLQ tenderness, no palpable masses, peristalsis present, no guarding or rebound. Extremities: Symmetrical, no significant deformities, 1+ peripheral edema , non-tender, peripheral pulses presents. Skin: No rashes, no lesions, warm to touch. Neuro: No focal neurological deficits. motor and sensory intact Psych: Cooperative, appropriate mood and effect. Objective Labs 04/22/24 04:38 04/22/24 04:38 Labs: Laboratory Results - last 24 hr 04/22/24 04:38 WBC 9.9 RBC 4.90 Hgb 15.0 Hct 44.2 MCV 90 MCH 30.6 MCHC 33.9 RDW Std Deviation 46.5 H Plt Count 192 Neut % (Auto) 83 H Lymph % (Auto) 10 [place] % (Auto) 7 Eos % (Auto) 0 Baso % (Auto) 0 Neut # (Auto) 8.3 H Lymph # (Auto) 0.9 L [place] # (Auto) 0.7 Eos # (Auto) 0.0 Baso # (Auto) 0.0 Immature Gran # (Auto) 0.05 H Absolute Nucleated RBC 0.00 Immature Gran % 1 H Nucleated RBC % 0 Sodium 140 Potassium 4.2 Chloride 103 Carbon Dioxide 29.3 Anion Gap 8 BUN 24 H Creatinine 1.0 Estim Creat Clear Calc 75.9 eGFR > 60 BUN/Creatinine Ratio 24 H Glucose 250 H Calculated Osmolality 291 Calcium 9.3 Corrected Calcium 9.3 Magnesium 2.0 Total Bilirubin 0.8 AST 13 ALT 29 Alkaline Phosphatase 144 H Total Protein 6.8 Albumin 4.3 Globulin 2.5 Albumin/Globulin Ratio 1.7 Prostate Specific Ag 0.18 D Quality Measures Quality Measures VTE prophylaxis Advance care planning discussed with:: patient and spouse Assessment & Plan Assessment Current Active Medications: Generic Name Dose Route Start Last Admin Trade Name Freq PRN Reason Stop Dose Admin Acetaminophen 650 mg 04/21/24 14:57 04/22/24 12:56 Acetaminophen 325 Mg Tablet PO 05/21/24 14:56 650 mg Q6H PRN Administration pain and Fever >100.4 Protocol Hydrocodone Bitart/Acetaminophen 1 tab 04/21/24 14:57 04/21/24 15:27 Hydrocodone/Apap 5/325 Tablet PO 04/26/24 14:56 1 tab Q4HR PRN Administration PAIN SCALE 4-10(Mod-Sev Apixaban 2.5 mg 04/21/24 21:00 04/22/24 09:09 Apixaban 2.5 Mg Tablet PO 05/21/24 20:59 2.5 mg BID VIKI Administration Protocol Dextrose 25 ml 04/21/24 14:57 Dextrose 50%-Water Inj 50 Ml Syringe IV 05/21/24 14:56 Q15MIN PRN BG 50-70 responsive npo pt Dextrose 50 ml 04/21/24 14:57 Dextrose 50%-Water Inj 50 Ml Syringe IV 05/21/24 14:56 Q15MIN PRN BG <50 OR BG <70 & pt unresponsive Doxycycline Hyclate 100 mg 04/21/24 21:00 04/22/24 09:09 Doxycycline 100 Mg Tablet PO 04/28/24 20:59 100 mg BID VIKI Administration Glucagon 1 mg 04/21/24 14:57 Glucagon Inj 1 Mg Vial IM Q15MIN PRN BG <70, and no IV access Guaifenesin 100 mg 04/21/24 19:02 04/22/24 09:10 Guaifenesin Syrup 200 Mg/10 Ml Udc PO 05/21/24 19:14 100 mg Q8H PRN Administration cough Protocol Ceftriaxone Sodium/Dextrose 50 mls @ 100 mls/hr 04/22/24 09:00 04/22/24 09:10 Rocephin/D5w 1gm Iv Premix IV 04/28/24 08:59 100 mls/hr QDAY VIKI Administration Insulin Glargine 12 unit 04/22/24 21:00 Insulin Glargine (Lantus) 5 Unit/0.05 Ml (Per 5 Units) SC 05/22/24 20:59 HS VIKI Insulin Human Lispro 0 unit 04/21/24 17:00 04/22/24 11:46 Insulin Lispro (Admelog) 1 Unit/0.01 Ml Unit SC 05/21/24 16:59 3 unit ACHS VIKI Administration Protocol Insulin Human Lispro 3 unit 04/22/24 08:00 04/22/24 11:46 Insulin Lispro (Admelog) 1 Unit/0.01 Ml Unit SC 05/22/24 07:59 3 unit TIDWM VIKI Administration Metoprolol Succinate 50 mg 04/22/24 09:00 04/22/24 09:09 Metoprolol Succinate Xl 25 Mg Tabcr PO 05/22/24 08:59 50 mg QDAY VIKI Administration Ondansetron HCl 4 mg 04/21/24 14:57 Ondansetron Inj 2 Mg/Ml Inj 2 Ml IV 05/21/24 14:56 Q6H PRN NAUSEA OR VOMITING Protocol Sennosides 1 tab 04/21/24 14:57 Senna Tablet PO 05/21/24 14:56 QDAY PRN constipation Protocol Plan 78-year-old male with past medical history of DM2,CHF, hypertension, CAD s/p stents, A-fib (on Eliquis), and prostate cancer s/p radiation was admitted to the hospital on 04/21/2024 due to acute hypoxic respiratory failure likely secondary to pneumonia and concern for sepsis in the setting of pneumonia. #Acute hypoxic respiratory failure secondary to #Community-acquired pneumonia versus hospital-acquired pneumonia ? Patient came in with complaints of cough, shortness of breath, and fever. ?DDx community-acquired pneumonia versus hospital-acquired pneumonia given recent hospital stay. ? Patient met SIRS 3 out of 4 with tachycardia, fever, and leukocytosis ? CTA showed pneumonia of left base ?Chest x-ray did not show any pneumonia ? Abdomen/pelvis CT showed L base pneumonia ? WBC 9.9 today ? On admission Lactic acid 1.7 and procalcitonin 0.33 -Blood cx negative in 24 hrs Plan: ?Continue patient on ceftriaxone and doxycycline [04/21/2024?] ?Pending cocci ?Official Sputum and blood cultures pending ?Oxygen administration as needed ?Will continue to monitor #Diverticulosis #Right lower quadrant pain #Concern for appendicitis versus constipation versus peritonitis ? Appendicitis ruled out by abdomen/pelvis CT ? Abdomen/pelvis CT showed diverticulosis ?On assessment patient had right lower quadrant pain and had leukocytosis and fever -Valencia score of 5 points Plan: ? Will continue to monitor #Hx of Congestive Heart Failure #Lower extremity edema #Pulmonary artery hypertension #CAD s/p stents ?Patient has lower extremity edema for the past 6 months to 1 year ? Patient states that he has a history of congestive heart failure. ? CTA chest showed pulmonary artery hypertension ? DDx right-sided heart failure in the setting of pulmonary artery hypertension Plan: ?Will hold off on echo as patient is following up with his plating foreman next month and echo was not emergent as he is not having any heart failure exacerbation at this time. #DM2 ?Glucose 261 Plan: ? 12 units glargine at bedtime - Lispro 3 units TIDWM ? ISS ? Accu-Cheks and hypoglycemia protocol ordered ?Will get records from [facility] to see if recent A1c was ordered, if not we will order #A-fib RVR ? Patient takes Eliquis and metoprolol at home ? EKG showed A-fib with RVR ? Heart rate more rate controlled now, in the 90s. Plan: ? Restart patient's metoprolol 50 mg daily ? Restart patient's Eliquis 2.5 mg twice daily ? Will continue to monitor Disposition: Patient seen in telemetry continue Abx, pending PT. Diet: Carb low GI prophylaxis: not indicated DVT prophylaxis: Eliquis Code: Full Case disclosed with Attending Dr. Lazaro Chapman PGY1 Attending Provider Attestation/Addendum I have discussed and was present for the essential components of the history, physical examination, diagnosis, and treatment plan with the resident. I agree with the patient's care as documented by the resident and amended herein by me. Froilan Willis, DO. Patient seen and evaluated this AM. In Short, patient is a 78-year-old male with significant past medical history of type 2 diabetes, CHF, CAD status post stents, A-fib on Eliquis and prostate cancer status post radiation therapy who was admitted on 04/21 due to acute hypoxic respiratory failure secondary to pneumonia. No acute events overnight, vital signs stable, patient afebrile, patient presently on 5 L, SpO2 93%. Blood glucose elevated to 45 this morning, blood cultures negative thus far. CBC and BMP largely unremarkable today. Will continue to follow with cocci serologies. Will continue ceftriaxone and doxycycline for now, urine culture pending, physical therapy pending, patient will need a bowel regimen added today, will continue to adjust insulin for improved blood sugar control. Will continue to monitor closely while is here. Medications: Eliquis 2.5 mg twice daily Plavix 75 mg daily Atorvastatin 80 mg at bedtime Lyrica 600 mg p.o. at bedtime Ceftriaxone 1 g daily Doxycycline 100 mg twice daily Lantus 1010 units at bedtime Lispro 3 units 3 times daily AC Sliding scale insulin Metoprolol tonight 50 mg p.o. daily Zofran as needed Senna and lactulose as needed. Although this document has been carefully reviewed, there may still be some phonetic and other typographical errors. These errors are purely grammatical due to imperfections in the software program and should not be construed in any way to compromise the substance of the patient's medical care during this visit.
[2024-04-22 14:44] LABS: Cocci Serology, IgM Negative (Negative)
[2024-04-22] MEDS: HYDROcodone/APAP 5/325 TABLET 1 TAB PO ×2 (14:47→22:03)
--- NOTE | 2024-04-22 16:19 | PC.PT ---
PT eval completed. Patient will need homehealth PT. Patient prefers [facility].
[2024-04-22] MEDS: INSULIN LISPRO (AdmeLOG) 1 UNIT/0.01 ML UNIT 4 UNIT SC (17:14)
[2024-04-22] MEDS: CLOPIDOGREL BISULFATE 75 MG TABLET PO (17:15)
[2024-04-22] MEDS: ATORVASTATIN CALCIUM 20 MG TABLET 80 MG PO (20:27)
[2024-04-22] MEDS: PREGABALIN 75 MG CAPSULE 600 MG PO (20:27)
[2024-04-22] MEDS: MEMANTINE HCL 5 MG TABLET 10 MG PO (20:28)
[2024-04-22] MEDS: Lisinopril 2.5 MG TABLET 10 MG PO (20:28)
[2024-04-22] MEDS: INSULIN GLARGINE (Lantus) 5 UNIT/0.05 ML (PER 5 UNITS) 12 UNIT SC (20:34)
[2024-04-23] VITALS (11 sets, daily range): BP systolic 111–136; BP diastolic 64–90; PULSE 77–135; RESP 17–97; TEMP 35.9–36.6; O2SAT 90–97; BMI 33.0
--- NOTE | 2024-04-23 02:45 | PC.NURSE ---
patient rhythm converted to afib. checked the pt. he is sleeping and wake him up no complaints of any pain or dizziness he is asymptomatic.called Doctor Renetta and she said to call her if HR is increasing.
[2024-04-23] MEDS: HYDROcodone/APAP 5/325 TABLET 1 TAB PO ×2 (05:14→20:50)
[2024-04-23 06:33] LABS: Basophils % (Auto) 0 % (0-2.5); Eosinophils # (Auto) 0.1 Thou/mm3 (0.0-0.5); Eosinophils % (Auto) 1 % (0-10); Hematocrit 45.6 % (41.0-53.0); Hemoglobin 15.1 g/dL (13.5-16.0); Immature Granulocytes % (Auto) 0 % (0-0); Immature Granulocytes Auto 0.04 Thou/mm3 (0.00-0.00); Lymphocytes # (Auto) 1.8 Thou/mm3 (1.0-4.8); Lymphocytes % (Auto) 19 % (10-50); Mean Corpuscular HGB Conc 33.1 g/dl (31.0-37.0); Mean Corpuscular Hemoglobin 30.8 pg (25.0-35.0); Mean Corpuscular Volume 93 fL (80-100); Monocytes # (Auto) 0.9 Thou/mm3 (0.0-0.8); Monocytes % (Auto) 10 % (0-12); Neutrophils # (Auto) 6.5 Thou/mm3 (1.8-7.7); Neutrophils % (Auto) 69 % (37-80); Nucleated Red Blood Cell % 0 /100 WBC (0); Platelet Count 159 Thou/mm3 (140-440); RDW Standard Deviation 49.1 fL (35.1-43.9); Red Blood Count 4.91 Miln/mm3 (4.50-5.90); White Blood Count 9.4 Thou/mm3 (3.8-10.6)
[2024-04-23 06:47] LABS: Alanine Aminotransferase 20 U/L (10-49); Albumin/Globulin Ratio 1.8 (1.2-2.2); Alkaline Phosphatase 124 U/L (46-116); Anion Gap 7 (7-16); Aspartate Amino Transferase 12 U/L (0-34); BUN/Creatinine Ratio 22 Ratio (12-20); Bilirubin,Total 0.6 mg/dL (0.3-1.2); Blood Urea Nitrogen 22 mg/dL (9-23); Calcium 8.9 mg/dL (8.3-10.6); Calcium (Corrected) 8.9 mg/dL (8.5-10.1); Carbon Dioxide 31.6 mMol/L (20.0-31.0); Chloride 103 mMol/L (98-107); Estimated Creatinine Clearance 75.9 mL/min (>60); Globulin 2.2 gm/dL (2.3-3.5); Glucose 177 mg/dL (74-106); Osmolality,Calculated 290 (275-295); Potassium 4.1 mMol/L (3.4-5.1); Sodium 142 mMol/L (136-145); Total Protein 6.2 gm/dL (5.7-8.2); eGFR > 60 See Note
--- NOTE | 2024-04-23 07:14 | PC.CC ---
Late Entry 04/22/24: Rounding Note-pt will remain 1-2 more days.
--- NOTE | 2024-04-23 07:57 | PC.CC ---
Pt Tommy Walters is a 78 yr old male, admitted for PNA, fever, weakness. ASW met with pt at bedside to complete initial assessment. At time of encounter pts Yoselin Walters [phone] is at bedside. Pt provided verbal consent for ASW to proceed with encounter. At time of encounter pt is noted to be alert and oriented to person, place an situation. Pt was able to confirm demographic information. Pt is from home [address], [address] where he lives with his . Pt identifies his as surrogate DM. At baseline pt utilizes a 4-wheel rollator and cane to support ambulation. Per pt he does require some assist with completing his ADLs. Pt reports he is diabetic, on pill and insulin management. Pt does not require supplemental O2 in the home. Pt is followed by Dr. Sanchez for primary care. Pt is followed by Dr. Soliz in [place] for nephrology. Pt is followed by Dr. Vazquez for neurology. At D/c pt states he would like to return home. Per pts , if pt is unable to walk on his own. Pt will need to D/c to SNF for rehab before returning home, for his safety. Pt states he is open to SNF placement if necessary. Per pt he has been to [facility] past, and [facility] is last option for placement. Pt reports he would prefer to stay in [facility].
[2024-04-23] MEDS: INSULIN LISPRO (AdmeLOG) 1 UNIT/0.01 ML UNIT 4 UNIT SC ×3 (08:32→18:13)
[2024-04-23] MEDS: ACETAMINOPHEN 325 MG TABLET 650 MG PO (08:33)
[2024-04-23] MEDS: METOPROLOL SUCCINATE XL 25 MG TABCR 50 MG PO (08:33)
[2024-04-23] MEDS: INSULIN LISPRO (AdmeLOG) 1 UNIT/0.01 ML UNIT SC ×4 (08:33→20:46)
[2024-04-23] MEDS: MEMANTINE HCL 5 MG TABLET 10 MG PO ×2 (08:34→20:49)
[2024-04-23] MEDS: APIXABAN 2.5 MG TABLET PO ×2 (08:34→20:49)
[2024-04-23] MEDS: CLOPIDOGREL BISULFATE 75 MG TABLET PO (08:34)
[2024-04-23] MEDS: cefTRIAXone/D5w 1gm IV premix 50 ML IV (08:34)
[2024-04-23] MEDS: DOXYCYCLINE 100 MG TABLET PO ×2 (08:34→20:49)
--- NOTE | 2024-04-23 14:57 | PC.CC ---
Rounding Note: Pt is set to D/c with HH order ([facility]), and home O2. ASW has spoken with provider and bedside RN, to request O2 road test prior to order being able to be sent. ASW awaiting RN note.
--- NOTE | 2024-04-23 16:20 | ESPR_ITS ---
Documentation for date of: 04/23/24 Subjective Subjective Interval history: Patient was examined bedside this morning, saturating 90% on room air. Blood drops to 85 while walking. Patient will need oxygen prior to discharge. Exam Vital Signs Temp Pulse Resp BP Pulse Ox O2 Del Method O2 Flow Rate 97.1 F 99 28 H 126/67 95 Room Air 2 04/23/24 12:00 04/23/24 12:00 04/23/24 12:00 04/23/24 12:00 04/23/24 12:00 04/23/24 12:00 04/23/24 10:34 Narrative Exam General: A/O x3, no acute distress, well-nourished, well-developed Eyes: PERRL, EOMI. Anicteric, vision grossly intact. Ears: No ear pain, no ear discharge, Hearing grossly intact. Nose: No nasal discharge. Mouth/Throat: Dry mucous membranes, no redness, no lesions. Neck: Neck supple, non-tender, no cervical lymphadenopathy. Lungs: Clear DAYA to auscultation and percussion, No accessory muscle use. Cardio: Normal S1/S2, regular rhythm, no murmurs, no JVD. Abdomen: Soft, RLQ tenderness, no palpable masses, peristalsis present, no guarding or rebound. Extremities: Symmetrical, no significant deformities, 1+ peripheral edema , non-tender, peripheral pulses presents. Skin: No rashes, no lesions, warm to touch. Neuro: No focal neurological deficits. motor and sensory intact Psych: Cooperative, appropriate mood and effect Objective Labs 04/23/24 04:43 04/23/24 04:43 Labs: Laboratory Results - last 24 hr 04/23/24 04:43 WBC 9.4 RBC 4.91 Hgb 15.1 Hct 45.6 MCV 93 MCH 30.8 MCHC 33.1 RDW Std Deviation 49.1 H Plt Count 159 D Neut % (Auto) 69 Lymph % (Auto) 19 [place] % (Auto) 10 Eos % (Auto) 1 Baso % (Auto) 0 Neut # (Auto) 6.5 Lymph # (Auto) 1.8 [place] # (Auto) 0.9 H Eos # (Auto) 0.1 Baso # (Auto) 0.0 Immature Gran # (Auto) 0.04 H Absolute Nucleated RBC 0.00 Immature Gran % 0 Nucleated RBC % 0 Sodium 142 Potassium 4.1 Chloride 103 Carbon Dioxide 31.6 H Anion Gap 7 BUN 22 Creatinine 1.0 Estim Creat Clear Calc 75.9 eGFR > 60 BUN/Creatinine Ratio 22 H Glucose 177 H D Calculated Osmolality 290 Calcium 8.9 Corrected Calcium 8.9 Magnesium 2.0 Total Bilirubin 0.6 AST 12 ALT 20 Alkaline Phosphatase 124 H D Total Protein 6.2 Albumin 4.0 Globulin 2.2 L Albumin/Globulin Ratio 1.8 Quality Measures Quality Measures VTE prophylaxis Advance care planning discussed with:: patient Assessment & Plan Assessment Current Active Medications: Generic Name Dose Route Start Last Admin Trade Name Freq PRN Reason Stop Dose Admin Acetaminophen 650 mg 04/21/24 14:57 04/23/24 08:33 Acetaminophen 325 Mg Tablet PO 05/21/24 14:56 650 mg Q6H PRN Administration pain and Fever >100.4 Protocol Hydrocodone Bitart/Acetaminophen 1 tab 04/21/24 14:57 04/23/24 05:14 Hydrocodone/Apap 5/325 Tablet PO 04/26/24 14:56 1 tab Q4HR PRN Administration PAIN SCALE 4-10(Mod-Sev Apixaban 2.5 mg 04/21/24 21:00 04/23/24 08:34 Apixaban 2.5 Mg Tablet PO 05/21/24 20:59 2.5 mg BID VIKI Administration Protocol Atorvastatin Calcium 80 mg 04/22/24 21:00 04/22/24 20:27 Atorvastatin Calcium 20 Mg Tablet PO 05/22/24 20:59 80 mg QPM VIKI Administration Clopidogrel Bisulfate 75 mg 04/22/24 15:30 04/23/24 08:34 Clopidogrel Bisulfate 75 Mg Tablet PO 05/22/24 15:29 75 mg QDAY VIKI Administration Dextrose 25 ml 04/21/24 14:57 Dextrose 50%-Water Inj 50 Ml Syringe IV 05/21/24 14:56 Q15MIN PRN BG 50-70 responsive npo pt Dextrose 50 ml 04/21/24 14:57 Dextrose 50%-Water Inj 50 Ml Syringe IV 05/21/24 14:56 Q15MIN PRN BG <50 OR BG <70 & pt unresponsive Doxycycline Hyclate 100 mg 04/21/24 21:00 04/23/24 08:34 Doxycycline 100 Mg Tablet PO 04/28/24 20:59 100 mg BID VIKI Administration Glucagon 1 mg 04/21/24 14:57 Glucagon Inj 1 Mg Vial IM Q15MIN PRN BG <70, and no IV access Guaifenesin 100 mg 04/21/24 19:02 04/22/24 22:03 Guaifenesin Syrup 200 Mg/10 Ml Udc PO 05/21/24 19:14 100 mg Q8H PRN Administration cough Protocol Ceftriaxone Sodium/Dextrose 50 mls @ 100 mls/hr 04/22/24 09:00 04/23/24 08:34 Rocephin/D5w 1gm Iv Premix IV 04/28/24 08:59 100 mls/hr QDAY VIKI Administration Insulin Glargine 12 unit 04/22/24 21:00 04/22/24 20:34 Insulin Glargine (Lantus) 5 Unit/0.05 Ml (Per 5 Units) SC 05/22/24 20:59 12 unit HS VIKI Administration Insulin Human Lispro 0 unit 04/21/24 17:00 04/23/24 12:40 Insulin Lispro (Admelog) 1 Unit/0.01 Ml Unit SC 05/21/24 16:59 3 unit ACHS VIKI Administration Protocol Insulin Human Lispro 4 unit 04/22/24 17:30 04/23/24 12:40 Insulin Lispro (Admelog) 1 Unit/0.01 Ml Unit SC 05/22/24 17:29 4 unit TIDWM VIKI Administration Lisinopril 10 mg 04/22/24 21:00 04/22/24 20:28 Lisinopril 2.5 Mg Tablet PO 05/22/24 20:59 10 mg QPM VIKI Administration Memantine 10 mg 04/22/24 21:00 04/23/24 08:34 Memantine Hcl 5 Mg Tablet PO 05/22/24 20:59 10 mg BID VIKI Administration Metoprolol Succinate 50 mg 04/22/24 09:00 04/23/24 08:33 Metoprolol Succinate Xl 25 Mg Tabcr PO 05/22/24 08:59 50 mg QDAY VIKI Administration Ondansetron HCl 4 mg 04/21/24 14:57 Ondansetron Inj 2 Mg/Ml Inj 2 Ml IV 05/21/24 14:56 Q6H PRN NAUSEA OR VOMITING Protocol Pregabalin 600 mg 04/22/24 21:00 04/22/24 20:27 Pregabalin 75 Mg Capsule PO 05/22/24 20:59 600 mg QPM VIKI Administration Sennosides 1 tab 04/21/24 14:57 Senna Tablet PO 05/21/24 14:56 QDAY PRN constipation Protocol Plan 8-year-old male with past medical history of DM2,CHF, hypertension, CAD s/p stents, A-fib (on Eliquis), and prostate cancer s/p radiation was admitted to the hospital on 04/21/2024 due to acute hypoxic respiratory failure likely secondary to pneumonia and concern for sepsis in the setting of pneumonia. #Acute hypoxic respiratory failure secondary to #Community-acquired pneumonia versus hospital-acquired pneumonia - improving ? Patient came in with complaints of cough, shortness of breath, and fever. ?DDx community-acquired pneumonia versus hospital-acquired pneumonia given recent hospital stay. ? Patient met SIRS 3 out of 4 with tachycardia, fever, and leukocytosis ? CTA showed pneumonia of left base ?Chest x-ray did not show any pneumonia ? Abdomen/pelvis CT showed L base pneumonia ? WBC 9.9 today ? On admission Lactic acid 1.7 and procalcitonin 0.33 -Blood cx negative in 24 hrs ?Continue patient on ceftriaxone and doxycycline [04/21/2024?] ? cocci- negative ?blood cultures negative ?Oxygen administration as needed ?Will continue to monitor -Pending home oxygen for discharge #Diverticulosis #Right lower quadrant pain #Concern for appendicitis versus constipation versus peritonitis ? Appendicitis ruled out by abdomen/pelvis CT ? Abdomen/pelvis CT showed diverticulosis ?On assessment patient had right lower quadrant pain and had leukocytosis and fever -Valencia score of 5 points Plan: ? Will continue to monitor #Hx of Congestive Heart Failure #Lower extremity edema #Pulmonary artery hypertension #CAD s/p stents ?Patient has lower extremity edema for the past 6 months to 1 year ? Patient states that he has a history of congestive heart failure. ? CTA chest showed pulmonary artery hypertension ? 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 #DM2 ?Glucose 177 Plan: ? 12 units glargine at bedtime - Lispro 4 units TIDWM ? ISS ? Accu-Cheks and hypoglycemia protocol ordered ?Will get records from [facility] to see if recent A1c was ordered, if not we will order #A-fib RVR ? Patient takes Eliquis and metoprolol at home ? EKG showed A-fib with RVR ? Heart rate more rate controlled now, in the 90s. Plan: ? Restart patient's metoprolol 50 mg daily ? Restart patient's Eliquis 2.5 mg twice daily ? Will continue to monitor Disposition: Patient seen in telemetry continue Abx, pending home oxygen Diet: Carb low GI prophylaxis: not indicated DVT prophylaxis: Eliquis Code: Full Discussed the patient with my attending Dr Conteh , Milvia Blancas MD,PGY-3 Attending Provider Attestation/Addendum I have examined the patient, reviewed labs and imaging findings, discussed the case with the resident(s), and reviewed entered orders. I agree with the plan of care as outlined in this note, with these additional summaries/recommendations: Patient medically cleared for discharge. Continue Augmentin and doxycycline to complete treatment of community-acquired pneumonia secondary to gram-negative rods. Follow-up with PCP within 7 to 10 days of discharge. Follow-up with cardiology. Continue supplemental oxygen and titrate to O2 saturation of 89 to 90%. Patient encouraged to purchase pulse oximeter. Patient given strict return precautions. Patient updated on the plan and in agreement. All questions answered to satisfaction. Dr. Conteh
--- NOTE | 2024-04-23 16:23 | PC.NURSE ---
Oxygen trial performed. Patient ambulated down [address] and desaturated to 85 oxygen and stayed there. On the way back to the room put patient on 3L NC and saturated 92 oxygen walking back. While at rest patient is at 96 oxygen in bed with 2L NC.
[2024-04-23] MEDS: INSULIN GLARGINE (Lantus) 5 UNIT/0.05 ML (PER 5 UNITS) 12 UNIT SC (20:46)
[2024-04-23] MEDS: guaiFENesin SYRUP 200 MG/10 ML UDC 100 MG PO (20:47)
[2024-04-23] MEDS: ATORVASTATIN CALCIUM 20 MG TABLET 80 MG PO (20:49)
[2024-04-23] MEDS: PREGABALIN 75 MG CAPSULE 600 MG PO (20:49)
[2024-04-23] MEDS: Lisinopril 2.5 MG TABLET 10 MG PO (20:50)
[2024-04-24] VITALS (7 sets, daily range): BP systolic 115–140; BP diastolic 79–90; PULSE 78–135; RESP 18–96; TEMP 36.2–36.8; O2SAT 94–99
[2024-04-24 06:51] LABS: Basophils # (Auto) 0.1 Thou/mm3 (0.0-0.2); Basophils % (Auto) 1 % (0-2.5); Eosinophils # (Auto) 0.2 Thou/mm3 (0.0-0.5); Eosinophils % (Auto) 2 % (0-10); Hematocrit 47.3 % (41.0-53.0); Hemoglobin 15.5 g/dL (13.5-16.0); Immature Granulocytes % (Auto) 1 % (0-0); Immature Granulocytes Auto 0.06 Thou/mm3 (0.00-0.00); Lymphocytes # (Auto) 1.7 Thou/mm3 (1.0-4.8); Lymphocytes % (Auto) 21 % (10-50); Mean Corpuscular HGB Conc 32.8 g/dl (31.0-37.0); Mean Corpuscular Volume 92 fL (80-100); Monocytes % (Auto) 11 % (0-12); Neutrophils # (Auto) 5.5 Thou/mm3 (1.8-7.7); Neutrophils % (Auto) 65 % (37-80); Nucleated Red Blood Cell % 0 /100 WBC (0); Platelet Count 180 Thou/mm3 (140-440); RDW Standard Deviation 47.6 fL (35.1-43.9); Red Blood Count 5.17 Miln/mm3 (4.50-5.90); White Blood Count 8.4 Thou/mm3 (3.8-10.6)
[2024-04-24 07:32] LABS: Alanine Aminotransferase 17 U/L (10-49); Albumin/Globulin Ratio 1.7 (1.2-2.2); Alkaline Phosphatase 123 U/L (46-116); Anion Gap 6 (7-16); Aspartate Amino Transferase < 8 U/L (0-34); BUN/Creatinine Ratio 20 Ratio (12-20); Bilirubin,Total 0.6 mg/dL (0.3-1.2); Blood Urea Nitrogen 18 mg/dL (9-23); Calcium 8.9 mg/dL (8.3-10.6); Calcium (Corrected) 8.9 mg/dL (8.5-10.1); Carbon Dioxide 30.3 mMol/L (20.0-31.0); Chloride 103 mMol/L (98-107); Creatinine (Component) 0.9 mg/dL (0.6-1.3); Estimated Creatinine Clearance 84.4 mL/min (>60); Globulin 2.3 gm/dL (2.3-3.5); Glucose 190 mg/dL (74-106); Magnesium 1.9 mg/dL (1.6-2.6); Osmolality,Calculated 284 (275-295); Sodium 139 mMol/L (136-145); Total Protein 6.3 gm/dL (5.7-8.2); eGFR > 60 See Note
[2024-04-24] MEDS: INSULIN LISPRO (AdmeLOG) 1 UNIT/0.01 ML UNIT SC ×2 (07:50→11:38)
[2024-04-24] MEDS: INSULIN LISPRO (AdmeLOG) 1 UNIT/0.01 ML UNIT 4 UNIT SC ×2 (07:50→11:37)
--- NOTE | 2024-04-24 08:51 | PC.NURSE ---
Addendum entered by Quan Huddleston RN 04/24/24 10:31: During oxygen desat pt maintained at 78% Original Note: Pt destated during night on room air. Pt again desated on 2 L, and was increased to 3 L. patient saturating well on 3L.
[2024-04-24] MEDS: cefTRIAXone/D5w 1gm IV premix 50 ML IV (10:21)
[2024-04-24] MEDS: METOPROLOL SUCCINATE XL 25 MG TABCR 50 MG PO (10:22)
[2024-04-24] MEDS: MEMANTINE HCL 5 MG TABLET 10 MG PO (10:22)
[2024-04-24] MEDS: APIXABAN 2.5 MG TABLET PO (10:23)
[2024-04-24] MEDS: CLOPIDOGREL BISULFATE 75 MG TABLET PO (10:23)
[2024-04-24] MEDS: DOXYCYCLINE 100 MG TABLET PO (10:23)
--- NOTE | 2024-04-24 10:32 | PC.SS ---
Addendum entered by Sarah Jerry 04/24/24 11:44: Follow up note: SS spoke to [facility] and they will deliver 02 within an hour. Updated RN. Original Note: Follow up note: Patient ready for d/c. Pending nurse notes for 02 saturations.
--- NOTE | 2024-04-24 11:32 | PD.RESDS ---
Planned Discharge Date 04/24/24 DS: Providers Provider Date of admission: 04/21/24 14:57 Primary care physician: Hardeep Sanchez MD Admitting Provider: Laron Willis DO Attending Provider on Admission: Laron Willis DO Consults: 04/22/24 10:09 Referral Physical Therapy Routine Comment: Physician Instructions: Attending Provider on DC: Yaya Carl MD Discharging Provider: Yaya Carl MD DS: Diagnosis Problem List Completed Was Problem List Reviewed/Reconciled?: Yes Hospital Course Hospital Course Hospital course: 78-year-old male with past medical history of DM2, hypertension, CAD s/p stents, A-fib (on Eliquis), and prostate cancer s/p radiation was admitted to the hospital on 04/21/2024 due to acute hypoxic respiratory failure likely secondary to pneumonia and concern for sepsis in the setting of pneumonia. In the ED patient came in with complaints of shortness of breath, cough, and fever.Initial labs were relevant for leukocytosis (12.2). Initial imaging included chest x-ray which did not show any pneumonia or pulmonary edema, EKG which showed A-fib with RVR, and chest CTA which showed some pulmonary artery hypertension and some early pneumonia of left base. Patient was treated with Rocephin and doxycycline given that he was recently discharged from [facility]. There was concern for appendicitis, but this was ruled out after CTabdomen did not show any appendicitis. Patient remained stable on his hospital stay and had no spikes in fevers and his WBC went down. 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 Patient did require O2 while walking as he desaturated therefore he will be sent home on home oxygen. At the time of discharge patient was stable enough to be discharged home with home health and home oxygen. Discharge plan: Please follow-up with your PCP within 1 week of discharge. -You have been started on amoxicillin-potassium clavulanate 875/125 mg twice daily for 5 days -You have been started on doxycycline 100 Mg twice daily for 5 days -Your metformin dose has been changed to 500 Mg twice daily from 500 Mg daily. -Continue with all other previously prescribed medicines -Recommended to return back to emergency department if your symptoms persist or do not improve. Problem list: #Acute hypoxic respiratory failure secondary to #Community-acquired pneumonia versus hospital-acquired pneumonia #Diverticulosis #Right lower quadrant pain #Concern for appendicitis versus constipation versus peritonitis #Hx of Congestive Heart Failure #Lower extremity edema #Pulmonary artery hypertension #CAD s/p stents #DM2 #A-fib RVR The discharge plan was discussed with my attending Dr. Siddhartha MD and senior resident Dr. Viviana MD PGY2 Brenton Chapman MD PGY1 Senior Resident Attestation: I discussed with and supervised the internal medicine nurse physician involved in the care of this patient. I personally saw and examined the patient and discussed the assessment and plan with the entire medicine team, including my attending. I agree with the discharge plan as documented above. Jeramy Michelle MD PGY2 Internal Medicine Status at Discharge Overall status at discharge: patient is progressing back to baseline Time Spent with Patient Time attestation: Total time spent providing and/or coordinating discharge services:>35 min Home Health Home Health Referral Orders: 04/23/24 10:01 Home Health Referral Routine Reason For Exam: Physical therapy Home-Bound The patient must either because of illness or injury, need the aid of supportive devices such as crutches, canes, wheelchairs, and walkers; the use of special transportation; or the assistance of another person in order to leave their place of residence; OR have a condition such that leaving his or her home is medically contraindicated. In addition, the patient also meets the following criteria: patient is normally unable to leave the home and leaving home requires considerable taxing effort. Addendum to Home Health Certification Practitioner's Certification: I certify that the patient has been under my care in the hospital and the care of attending physician (see below). We had a ybke-hq-kehi encounter on (see date below). My clinical findings indicate that the patient is home bound per the above criteria and the Home Health Services noted in these orders are medically necessary. The primary reason for the rqzp-[id number]-[id number] encounter is related to the fact that the patient requires home health services. Date Certifying Icab-yk-Yikj Physician Encounter: 04/21/24 Physician's Name who will Assume Oversight for Services: Hardeep Laura Physician's Phone No.who will Assume Oversight for Service: CHEMISTRY ASSOCIATE - Community Resources: Yes PT to Evaluate: Yes PT to evaluate and provide a treatmnet plan to increase patient's mobility and strength. Wound Care: No IV Therapy: No RN Safety Evaluation: Yes RN to evaluate and create a plan of care that will produce positive outcomes. Palliative Treatment: No Palliative treatment and evaluate the need for hospice. Home Health Aide - Personal Care: No Home Health Aide to assist with any ADL's. Exam Vital Signs Temp Pulse Resp BP Pulse Ox O2 Del Method O2 Flow Rate 97.9 F 103 H 23 H 134/90 H 99 Nasal Cannula 2 04/24/24 08:00 04/24/24 10:22 04/24/24 08:00 04/24/24 10:22 04/24/24 08:00 04/24/24 08:00 04/24/24 08:00 Narrative Exam General: A/O x3, no acute distress, well-nourished, well-developed Eyes: PERRL, EOMI. Anicteric, vision grossly intact. Ears: No ear pain, no ear discharge, Hearing grossly intact. Nose: No nasal discharge. Mouth/Throat: Dry mucous membranes, no redness, no lesions. Neck: Neck supple, non-tender, no cervical lymphadenopathy. Lungs: Clear DAYA to auscultation and percussion, No accessory muscle use. Cardio: Normal S1/S2, regular rhythm, no murmurs, no JVD. Abdomen: Soft, non tender, no palpable masses, peristalsis present, no guarding or rebound. Extremities: Symmetrical, no significant deformities, 1+ peripheral edema , non-tender, peripheral pulses presents. Skin: No rashes, no lesions, warm to touch. Neuro: No focal neurological deficits. motor and sensory intact Psych: Cooperative, appropriate mood and effect. Discharge Plan Plan Patient Disposition: Home w/HOME HEALTH Disposition Comment: With Home O2 Care Plan Goals: Please follow-up with your PCP within 1 week of discharge. -You have been started on amoxicillin-potassium clavulanate 875/125 mg twice daily for 5 days -You have been started on doxycycline 100 Mg twice daily for 5 days -Your metformin dose has been changed to 500 Mg twice daily from 500 Mg daily. -Continue with all other previously prescribed medicines -Recommended to return back to emergency department if your symptoms persist or do not improve. Prescriptions/Referrals Prescriptions/Med Rec: New doxycycline hyclate 100 mg capsule 100 mg PO BID 5 Days Qty: 10 0RF amoxicillin-pot clavulanate 875-125 mg tablet 1 tab PO BID Qty: 10 0RF metformin 500 mg tablet 500 mg PO BID Qty: 60 3RF albuterol sulfate 90 mcg/actuation HFA aerosol inhaler 1 inh inhalation QID PRN (Reason: shortness of breath or wheezing) Qty: 8.5 0RF Continued pregabalin [Lyrica] 300 mg capsule 600 mg PO QPM metoprolol succinate [Toprol XL] 50 MG tablet extended release 24 hr 100 mg PO HS Qty: 0 lisinopril 10 mg tablet 10 mg PO QPM Patient Comments: TAKE 1 TABLET BY MOUTH EVERY DAY atorvastatin 80 mg Tablet 80 mg PO QPM clopidogrel 75 mg Tablet 75 mg PO QDAY memantine 10 mg Tablet 10 mg PO BID Novolin 70-30 FlexPen U-100 100 unit/mL (70-30) Insulin Pen 5 unit SUBCUT BID omega-3 fatty acids-vitamin E 1,000 mg Capsule 1,000 cap PO 1XD B12 5,000-100 mcg Lozenge Rx Instructions: B12 Vitamin 2500 MG 1 per day (per Dr. Clark) Eliquis 2.5 mg Tablet 2.5 mg PO BID Discontinued metformin 500 mg Tablet 500 mg PO QDAY Referrals: Hardeep Sanchez MD [Primary Care Provider] - Patient/Caregiver Discharge Instructions Discharge Activity: activity as tolerated Other Discharge Activity Instructions:: Please follow-up with your PCP within 1 week of discharge. -You have been started on amoxicillin-potassium clavulanate 875/125 mg twice daily for 5 days -You have been started on doxycycline 100 Mg twice daily for 5 days -Your metformin dose has been changed to 500 Mg twice daily from 500 Mg daily. -Continue with all other previously prescribed medicines -Recommended to return back to emergency department if your symptoms persist or do not improve. Education Materials: Complementary Care for Pain, ED Weakness (Uncertain Cause) Print Language: French Stand Alone Forms: Vivienne Award Info., Patient Portal Info Letter Discharge Order Discharge Orders: Discharge (Routine); Ordered 04/24/24 Ordered By: Yaya Carl Quality Discharge Quality Measures VTE prophylaxis Attestestation MD Attestation I reviewed labs, imaging, EKG, home medications and prior available records. Face to face evaluation was performed by me. I have personally examined the patient and discussed assessment and plan with the IM team. I reviewed the resident note and agree with the plan with exceptions as below. Acute hypoxic respiratory failure Community-acquired pneumonia, left lower lobe Uncontrolled diabetes mellitus with hyperglycemia, type II CAD in [place] artery Chronic CHF Chronic A-fib Will discharge on Augmentin and doxycycline Home oxygen ordered and order was signed. Home health ordered. Prescribed albuterol as needed Continue home medications for diabetes mellitus Follow-up with PCP in 1 week Time spent is 40 minutes. More than 50% of the time was spent on patient education and coordination of care.
--- NOTE | 2024-04-24 12:37 | PC.NURSE ---
Overnight patient desatted to 78% on room air.
[2024-04-24 13:54] LABS: Cocci Serology, IgG Negative (Negative)
--- NOTE | 2024-04-24 14:02 | PC.NURSE ---
[facility] has delivered oxygen for pt home use. [facility] will meet pt at residence to further educate with equipment before discharge. Discharge pending 's return.
--- NOTE | 2024-04-24 17:50 | PC.CC ---
Referral sent to [facility]
--- NOTE | 2024-04-25 07:51 | PC.CM ---
[facility] accepted patient pending start of care date. I sent facesheet today.
--- NOTE | 2024-04-25 10:37 | PC.CM ---
[facility] accepted patient and they will open on 04/26.
== END 2024-04-24 13:58 | disposition home health service (06) | DRG 193 ==
LOC: SERX 06:55 → SERHOLD 15:12 → S2NX 21:33
PROVIDERS: Admitting Provider Student in an Organized Health Care Education/Training Program; Emergency Provider Emergency Medicine; PCP Family Medicine; Visit Provider Student in an Organized Health Care Education/Training Program
DX: J18.9 Pneumonia, unspecified organism (principal); J96.01 Acute respiratory failure with hypoxia; I48.20 Chronic atrial fibrillation, unspecified; I27.21 Secondary pulmonary arterial hypertension; I25.10 Atherosclerotic heart disease of native coronary artery without angina pectoris; I50.9 Heart failure, unspecified; I11.0 Hypertensive heart disease with heart failure; E11.65 Type 2 diabetes mellitus with hyperglycemia; F17.290 Nicotine dependence, other tobacco product, uncomplicated; K57.30 Diverticulosis of large intestine without perforation or abscess without bleeding; Y95 Nosocomial condition; Z95.5 Presence of coronary angioplasty implant and graft; Z85.46 Personal history of malignant neoplasm of prostate; Z92.3 Personal history of irradiation; Z79.01 Long term (current) use of anticoagulants; Z79.84 Long term (current) use of oral hypoglycemic drugs; Z79.899 Other long term (current) drug therapy; Z88.2 Allergy status to sulfonamides; Z91.041 Radiographic dye allergy status
CPT/HCPCS: 36415; 71045; 71275; 74176; 80053; 81001; 83605; 83690; 83735; 83880; 84145; 84153; 84484; 85025; 85610; 85730; 86331; 86635; 87040; 87081; 87086; 87205; 87400; 87811; 93005; 96365; 96367; 96372; 96375; 97162; 99285; A4649; J0456; J0696; J1200; J1815; J2919; J3490; J7050; Q9967; A9270

== ENCOUNTER → 2025-02-21 | Outpatient (CLI) | payer MEDICARE, SELFPAY ==
[2025-02-21 10:10] LABS: Basophils # (Auto) 0.1 Thou/mm3 (0.0-0.2); Basophils % (Auto) 1 % (0-2.5); Eosinophils # (Auto) 0.1 Thou/mm3 (0.0-0.5); Eosinophils % (Auto) 1 % (0-10); Hematocrit 48.7 % (41.0-53.0); Hemoglobin 16.3 g/dL (13.5-16.0); Immature Granulocytes Auto 0.05 Thou/mm3 (0.00-0.00); Lymphocytes # (Auto) 1.6 Thou/mm3 (1.0-4.8); Lymphocytes % (Auto) 21 % (10-50); Mean Corpuscular HGB Conc 33.5 g/dl (31.0-37.0); Mean Corpuscular Hemoglobin 31.0 pg (25.0-35.0); Mean Corpuscular Volume 93 fL (80-100); Monocytes # (Auto) 0.7 Thou/mm3 (0.0-0.8); Monocytes % (Auto) 9 % (0-12); Neutrophils # (Auto) 5.1 Thou/mm3 (1.8-7.7); Neutrophils % (Auto) 69 % (37-80); Nucleated Red Blood Cell # 0.00 Thou/mm3 (0.00-0.00); Nucleated Red Blood Cell % 0 /100 WBC (0); Platelet Count 144 Thou/mm3 (140-440); RDW Standard Deviation 51.3 fL (35.1-43.9); Red Blood Count 5.25 Miln/mm3 (4.50-5.90); White Blood Count 7.5 Thou/mm3 (3.8-10.6)
[2025-02-21 10:21] LABS: Glucose Estimated Average 177 mg/dL (80-131); Hemoglobin A1C 7.8 % Hgb (4.8-6.0)
[2025-02-21 10:28] LABS: PSA Medicare Annual Scrn 0.20 ng/mL (0-4.00)
[2025-02-21 10:29] LABS: Alanine Aminotransferase 17 U/L (10-49); Albumin, Serum 4.4 gm/dL (3.4-4.8); Albumin/Globulin Ratio 2.4 (1.2-2.2); Alkaline Phosphatase 120 U/L (46-116); Anion Gap 6 (7-16); Aspartate Amino Transferase 16 U/L (0-34); BUN/Creatinine Ratio 12 Ratio (12-20); Bilirubin,Total 0.8 mg/dL (0.3-1.2); Blood Urea Nitrogen 11 mg/dL (9-23); Calcium 8.8 mg/dL (8.3-10.6); Calcium (Corrected) 8.8 mg/dL (8.5-10.1); Carbon Dioxide 28.0 mMol/L (20.0-31.0); Cardiac Risk Estimate 2.9 RATIO (4.0-6.7); Chloride 110 mMol/L (98-107); Cholesterol 85 mg/dL (132-200); Creatinine (Component) 0.9 mg/dL (0.6-1.3); Globulin 1.8 gm/dL (2.3-3.5); Glucose 173 mg/dL (74-106); HDL Cholesterol 29 mg/dL (40-60); LDL Cholesterol,Calculated 33 mg/dL (0-130); Osmolality,Calculated 290 (275-295); Potassium 4.3 mMol/L (3.4-5.1); Sodium 144 mMol/L (136-145); Thyroid Stimulating Hormone 0.93 uIU/mL (0.55-4.78); Total Protein 6.2 gm/dL (5.7-8.2); Triglycerides 116 mg/dL (30-150); eGFR > 60 See Note
[2025-02-21 11:36] LABS: Creatinine MALB Rnd Ur 56 mg/dL (30-125); Microalbumin Creat Ratio 14 mg/gCrea (<30); Microalbumin, Random Urine 8 mg/L (0-300)
== END | disposition home or self-care (01) ==
LOC: COPL 08:30
PROVIDERS: PCP Family Medicine; Referring Provider Internal Medicine Clinical Cardiac Electrophysiology; Visit Provider Psychiatry & Neurology Neurology
DX: E78.5 Hyperlipidemia, unspecified (principal); E11.49 Type 2 diabetes mellitus with other diabetic neurological complication; R20.2 Paresthesia of skin; E11.59 Type 2 diabetes mellitus with other circulatory complications; I12.9 Hypertensive chronic kidney disease with stage 1 through stage 4 chronic kidney disease, or unspecified chronic kidney disease; E11.22 Type 2 diabetes mellitus with diabetic chronic kidney disease; N18.9 Chronic kidney disease, unspecified; Z85.46 Personal history of malignant neoplasm of prostate
CPT/HCPCS: 36415; 80053; 80061; 82043; 82570; 83036; 84153; 84443; 85025; G0103